=== PATIENT | female | born 1995 | race Two or more races ===

== ENCOUNTER 2020-07-29 20:49 | Emergency (ER) | payer OTHER, SELFPAY ==
--- NOTE | ~2020-07-29 | CT_ITS ---
EXAMINATION: CT CERVICAL SPINE WITHOUT CONTRAST CLINICAL INFORMATION: [facility] [place] COMPARISON: None. TECHNIQUE: Contiguous helical images of the cervical spine were obtained without IV contrast. Multiplanar reconstructions were performed. This CT examination was performed using dose optimization techniques as appropriate, variously including the following: *Automated exposure control *Adjustment of mA and/or kV according to patient size (this includes techniques or standardized protocols for targeted exams where dose is matched to indication/reason for exam; i.e. extremities or head) *Use of iterative reconstruction technique DLP: 332 mGy-cm FINDINGS: There is anatomic alignment of the vertebral bodies and posterior elements. The atlantoaxial and atlantooccipital articulations are intact. Vertebral body heights and intervertebral disc spaces are maintained. No evidence of acute fracture. No prevertebral soft tissue swelling. There is no cervical lymphadenopathy. The visualized thyroid gland is unremarkable. The visualized base of the brain is unremarkable. The visualized lung apices are clear. CT/CT cervical spine wo con IMPRESSION: No evidence for acute injury to the cervical spine.
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
[2020-07-29 21:05] VITALS: BP 106/69; PULSE 117; RESP 18; TEMP 37.1; O2SAT 98; BMI 25.0
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
--- NOTE | 2020-07-29 23:05 | PC.NURSE ---
Pt returns from CT on hospital bed. Pt asking for medication for pain. aware.
[2020-07-29] MEDS: diazePAM 2 MG TABLET PO (23:16)
[2020-07-29] MEDS: Ibuprofen 600 MG TABLET PO (23:16)
[2020-07-29 23:19] VITALS: BP 110/53; PULSE 86; RESP 16; O2SAT 98
--- NOTE | 2020-07-29 23:19 | PC.NURSE ---
Medicatd per MAY. VSS. Awaiting CT results. Continue to monitor.
--- NOTE | 2020-07-30 00:16 | PC.NURSE ---
Pt ambulating to Xray with a steady gait.
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
[2020-07-30 01:04] VITALS: RESP 20
== END 2020-07-30 01:06 | disposition home or self-care (01) ==
PROVIDERS: Emergency Provider Emergency Medicine
DX: S16.1XXA Strain of muscle, fascia and tendon at neck level, initial encounter (principal); M54.2 Cervicalgia; V43.52XA Car driver injured in collision with other type car in traffic accident, initial encounter; Y93.9 Activity, unspecified; Y92.410 Unspecified street and highway as the place of occurrence of the external cause; Y99.9 Unspecified external cause status; Z79.899 Other long term (current) drug therapy
CPT/HCPCS: 71045; 72125; 99284